=== PATIENT | female | born 1975 | race Two or more races ===

== ENCOUNTER → 2017-10-11 | Outpatient (REF) | payer OTHER ==
[2017-10-12 12:42] LABS: INFLUENZA A AMPLIFICATION NEGATIVE (NEGATIVE); INFLUENZA B AMPLIFICATION NEGATIVE (NEGATIVE)
== END ==
LOC: M SFHCLERA 21:41
DX: J11.1 Influenza due to unidentified influenza virus with other respiratory manifestations (principal)
CPT/HCPCS: 87502

== ENCOUNTER 2017-11-23 17:29 | Emergency (ER) | payer OTHER ==
[2017-11-23] MEDS: ONDANSETRON 4MG/2ML VIAL (J2405) IV (19:57)
[2017-11-23] MEDS: NS 1,000 ML IV (19:57)
[2017-11-23] MEDS: MORPHINE 2 MG/ML 1ML SYRINGE (J2270) IV ×3 (19:58→22:25)
[2017-11-23 20:14] LABS: BASO # 0.1 10^3/uL (0.0-0.2); BASO % 0.8 % (0.0-1.0); EOS # 0.3 10^3/uL (0.0-0.50); EOS % 3.2 % (0.0-3.0); HEMATOCRIT 40.3 % (36.0-47.0); HEMOGLOBIN 13.5 g/dl (12.0-16.0); IMMATURE GRANULOCYTE % 0.2 % (0-3.0); LYMPH # 2.4 10^3/uL (1.5-4.5); LYMPH % 26.4 % (24.0-44.0); MEAN CORPUSCULAR HEMOGLOBIN 32.1 pg (27.0-33.0); MEAN CORPUSCULAR HGB CONC 33.5 g/dl (32.0-36.5); MEAN CORPUSCULAR VOLUME 95.7 fl (80.0-96.0); MONO # 0.6 10^3/uL (0.0-0.8); MONO % 6.3 % (0.0-5.0); NEUTROPHILS # 5.8 10^3/uL (1.8-7.7); NEUTROPHILS % 63.1 % (36.0-66.0); PLATELET COUNT, AUTOMATED 177 10^3/uL (150-450); RED BLOOD COUNT 4.21 10^6/uL (4.00-5.40); WHITE BLOOD COUNT 9.2 10^3/uL (4.0-10.0)
[2017-11-23 20:23] LABS: KETONE, URINE AUTO RFX NEGATIVE (NEGATIVE); LEUKOCYTE ESTERASE UR AUTO RFX NEGATIVE (NEGATIVE); MUCUS, URINE RFX SMALL (NEGATIVE); NITRITE, URINE AUTO RFX NEGATIVE (NEGATIVE); RBC, URINE AUTO RFX 1 /HPF (0-3); SQUAM EPITHELIAL CELL UR AURFX 0 /HPF (0-6); WBC, URINE AUTO RFX 0 /HPF (0-3)
[2017-11-23 20:32] LABS: CONTROL LINE HCG INT CTR LINE PRESENT; HCG, SERUM QUALITATIVE NEGATIVE (NEGATIVE)
[2017-11-23 20:38] LABS: ALBUMIN 3.6 GM/DL (3.2-5.2); ALBUMIN/GLOBULIN RATIO 1.06 (1.00-1.93); ALKALINE PHOSPHATASE 53 U/L (45-117); ALT/SGPT 16 U/L (12-78); ANION GAP 8 MEQ/L (8-16); AST/SGOT 12 U/L (7-37); BILIRUBIN,DIRECT < 0.1 MG/DL (0.0-0.2); BILIRUBIN,TOTAL 0.2 MG/DL (0.2-1.0); BLOOD UREA NITROGEN 11 MG/DL (7-18); CALCIUM LEVEL 8.3 MG/DL (8.5-10.1); CARBON DIOXIDE LEVEL 26 MEQ/L (21-32); CHLORIDE LEVEL 107 MEQ/L (98-107); CREATININE FOR GFR 0.93 MG/DL (0.55-1.30); GLOMERULAR FILTRATION RATE > 60.0 (>58); GLUCOSE, FASTING 80 MG/DL (70-100); LIPASE 131 U/L (73-393); POTASSIUM SERUM 3.6 MEQ/L (3.5-5.1); SODIUM LEVEL 141 MEQ/L (136-145)
[2017-11-23 21:50] LABS: CONTROL LINE UCG INT CTR LINE PRESENT; URINE PREG TEST NEGATIVE (NEGATIVE)
[2017-11-23] MEDS ORDERED: ISOVUE-370 76% 100ML VIAL (Q9967) As Ordered (22:54)
[2017-11-24] MEDS: NORCO 5/325MG TABLET (BULK FOR ED) PO (00:53)
== END 2017-11-24 01:05 | disposition home or self-care (01) ==
LOC: M ED 11-24 01:05
DX: N83.202 Unspecified ovarian cyst, left side (principal); R11.10 Vomiting, unspecified; R19.7 Diarrhea, unspecified; I10 Essential (primary) hypertension; F41.9 Anxiety disorder, unspecified; K44.9 Diaphragmatic hernia without obstruction or gangrene; K21.9 Gastro-esophageal reflux disease without esophagitis; F17.210 Nicotine dependence, cigarettes, uncomplicated; Z88.0 Allergy status to penicillin; Z79.899 Other long term (current) drug therapy
CPT/HCPCS: J2405

== ENCOUNTER → 2017-11-24 | Outpatient (REF) | payer OTHER ==
[2017-11-24 11:26] LABS: BASO # 0.1 10^3/uL (0.0-0.2); BASO % 0.6 % (0.0-1.0); EOS # 0.2 10^3/uL (0.0-0.50); EOS % 2.9 % (0.0-3.0); HEMOGLOBIN 12.9 g/dl (12.0-16.0); IMMATURE GRANULOCYTE % 0.3 % (0-3.0); LYMPH # 1.9 10^3/uL (1.5-4.5); MEAN CORPUSCULAR HEMOGLOBIN 33.2 pg (27.0-33.0); MEAN CORPUSCULAR HGB CONC 33.9 g/dl (32.0-36.5); MEAN CORPUSCULAR VOLUME 97.7 fl (80.0-96.0); MONO # 0.5 10^3/uL (0.0-0.8); MONO % 5.9 % (0.0-5.0); NEUTROPHILS # 5.2 10^3/uL (1.8-7.7); NEUTROPHILS % 66.3 % (36.0-66.0); PLATELET COUNT, AUTOMATED 146 10^3/uL (150-450); RED BLOOD COUNT 3.89 10^6/uL (4.00-5.40); RED CELL DISTRIBUTION WIDTH 11.9 % (11.5-14.5); WHITE BLOOD COUNT 7.8 10^3/uL (4.0-10.0)
[2017-11-24 11:49] LABS: ESTIMATED AVERAGE GLUCOSE 103 MG/DL (60-110); HEMOGLOBIN A1c 5.2 %
[2017-11-24 11:50] LABS: ALBUMIN 3.5 GM/DL (3.2-5.2); ALBUMIN/GLOBULIN RATIO 1.25 (1.00-1.93); ALKALINE PHOSPHATASE 49 U/L (45-117); ALT/SGPT 17 U/L (12-78); ANION GAP 8 MEQ/L (8-16); AST/SGOT 9 U/L (7-37); BILIRUBIN,TOTAL 0.7 MG/DL (0.2-1.0); BLOOD UREA NITROGEN 8 MG/DL (7-18); CALCIUM LEVEL 7.9 MG/DL (8.5-10.1); CARBON DIOXIDE LEVEL 26 MEQ/L (21-32); CHLORIDE LEVEL 108 MEQ/L (98-107); CHOLESTEROL LEVEL 130 MG/DL (<200); CHOLESTEROL RISK RATIO 2.363 (<5); CREATININE FOR GFR 0.76 MG/DL (0.55-1.30); FREE T4 0.92 NG/DL (0.76-1.46); GLOMERULAR FILTRATION RATE > 60.0 (>58); GLUCOSE, FASTING 92 MG/DL (70-100); HDL CHOLESTEROL 55 MG/DL (>40); LDL CHOLESTEROL 55.8 MG/DL (<100); MAGNESIUM LEVEL 1.9 MG/DL (1.8-2.4); NON-HDL-C 75 MG/DL; SODIUM LEVEL 142 MEQ/L (136-145); TOTAL PROTEIN 6.3 GM/DL (6.4-8.2); TRIGLYCERIDES LEVEL 96 MG/DL (<150)
[2017-11-24 12:21] LABS: MALB URINE SIEMENS 7.3 MG/L; MAU/CREAT RATIO 5.6 MCG/MG (0.0-30.0)
== END ==
LOC: M SFHCPLAZ 09:27
DX: K21.9 Gastro-esophageal reflux disease without esophagitis (principal); R00.2 Palpitations; R73.01 Impaired fasting glucose; Z13.220 Encounter for screening for lipoid disorders; I10 Essential (primary) hypertension
CPT/HCPCS: 84443

== ENCOUNTER → 2017-11-25 | Outpatient (CLI) | payer OTHER | LOC: M RAD 11:00 | DX: R10.11 Right upper quadrant pain (principal) | CPT/HCPCS: 76705 ==

== ENCOUNTER → 2017-12-01 | Outpatient (CLI) | payer OTHER | LOC: M RAD 07:20 | DX: R10.11 Right upper quadrant pain (principal) | CPT/HCPCS: J2805 ==

== ENCOUNTER 2017-12-31 13:42 | Day surgery (SDC) | payer OTHER ==
[2017-12-31] MEDS: NS 1,000 ML IV (13:45)
[2017-12-31] MEDS ORDERED: fentaNYL 100 MCG/2 ML INJECTION (J3010) As Ordered (14:55)
[2017-12-31] MEDS ORDERED: ONDANSETRON 4MG/2ML VIAL (J2405) As Ordered (15:32)
== END 2017-12-31 16:26 | disposition home or self-care (01) ==
LOC: M OPP 13:42
DX: K58.1 Irritable bowel syndrome with constipation (principal); K58.2 Mixed irritable bowel syndrome; R10.9 Unspecified abdominal pain; D12.5 Benign neoplasm of sigmoid colon; K64.8 Other hemorrhoids; K30 Functional dyspepsia; R11.0 Nausea; K29.70 Gastritis, unspecified, without bleeding; I10 Essential (primary) hypertension; K44.9 Diaphragmatic hernia without obstruction or gangrene; K21.9 Gastro-esophageal reflux disease without esophagitis; F41.9 Anxiety disorder, unspecified; F32.9 Major depressive disorder, single episode, unspecified; F17.210 Nicotine dependence, cigarettes, uncomplicated; Z88.5 Allergy status to narcotic agent; Z91.048 Other nonmedicinal substance allergy status; Z88.0 Allergy status to penicillin; Z79.899 Other long term (current) drug therapy; Z83.71 Family history of colonic polyps
CPT/HCPCS: 45385

== ENCOUNTER → 2018-02-08 | Outpatient (REF) | payer OTHER | LOC: M SFHCLERA 19:43 | DX: J02.9 Acute pharyngitis, unspecified (principal) ==

== ENCOUNTER 2018-03-22 17:30 | Emergency (ER) | payer OTHER ==
[2018-03-22] MEDS: NORCO, ANEXSIA 5/325MG TABLET (HYDROcodone/ACETAMINOPHEN) PO (18:04)
[2018-03-22] MEDS: CLINDAMYCIN 150 MG CAP PO (18:05)
[2018-03-22] MEDS ORDERED: ONDANSETRON 4 MG ORAL DISINTEGRATING TAB (Q0162 PER 1MG) As Ordered (18:07)
[2018-03-22] MEDS: ONDANSETRON 4 MG ORAL DISINTEGRATING TAB (Q0162 PER 1MG) PO (18:09)
== END 2018-03-22 18:15 | disposition home or self-care (01) ==
LOC: M ED 17:30
DX: N61.1 Abscess of the breast and nipple (principal); I10 Essential (primary) hypertension; F32.9 Major depressive disorder, single episode, unspecified; F41.9 Anxiety disorder, unspecified; K58.9 Irritable bowel syndrome, unspecified; Z72.0 Tobacco use; Z79.899 Other long term (current) drug therapy; Z88.0 Allergy status to penicillin; Z91.89 Other specified personal risk factors, not elsewhere classified
CPT/HCPCS: Q0162

== ENCOUNTER → 2018-03-24 | Outpatient (CLI) | payer OTHER | LOC: M RAD 16:07 | DX: N60.01 Solitary cyst of right breast (principal); N61.1 Abscess of the breast and nipple | CPT/HCPCS: 76642 ==

== ENCOUNTER → 2018-03-31 | Outpatient (CLI) | payer OTHER | LOC: M RAD 15:58 | DX: N63.41 Unspecified lump in right breast, subareolar (principal) | CPT/HCPCS: 77066 ==

== ENCOUNTER 2018-04-02 09:29 | Emergency (ER) | payer OTHER ==
[2018-04-02 10:13] LABS: BASO % 0.5 % (0.0-1.0); EOS # 0.2 10^3/uL (0.0-0.50); HEMATOCRIT 38.7 % (36.0-47.0); IMMATURE GRANULOCYTE % 0.4 % (0-3.0); LYMPH # 1.7 10^3/uL (1.5-4.5); LYMPH % 29.9 % (24.0-44.0); MEAN CORPUSCULAR HGB CONC 33.6 g/dl (32.0-36.5); MEAN CORPUSCULAR VOLUME 98.2 fl (80.0-96.0); MONO # 0.4 10^3/uL (0.0-0.8); MONO % 6.2 % (0.0-5.0); NEUTROPHILS # 3.4 10^3/uL (1.8-7.7); PLATELET COUNT, AUTOMATED 196 10^3/uL (150-450); RED BLOOD COUNT 3.94 10^6/uL (4.00-5.40); RED CELL DISTRIBUTION WIDTH 12.1 % (11.5-14.5); WHITE BLOOD COUNT 5.7 10^3/uL (4.0-10.0)
[2018-04-02 10:19] LABS: D-DIMER QUANT 427.4 ng/ml (<500)
[2018-04-02 10:24] LABS: ANION GAP 7 MEQ/L (8-16); BLOOD UREA NITROGEN 7 MG/DL (7-18); CALCIUM LEVEL 8.1 MG/DL (8.5-10.1); CARBON DIOXIDE LEVEL 26 MEQ/L (21-32); CHLORIDE LEVEL 108 MEQ/L (98-107); CPK CREATINE PHOSPHOKINASE 71 U/L (26-192); CREATININE FOR GFR 0.91 MG/DL (0.55-1.30); FREE T4 0.89 NG/DL (0.76-1.46); GLOMERULAR FILTRATION RATE > 60.0 (>58); GLUCOSE, FASTING 109 MG/DL (70-100); POTASSIUM SERUM 3.5 MEQ/L (3.5-5.1); SODIUM LEVEL 141 MEQ/L (136-145); TROPONIN I < 0.02 NG/ML (< 0.10)
[2018-04-02 10:30] LABS: CK-MB VALUE MASS < 1.0 NG/ML (<3.6); THYROID STIMULATING HORMONE 0.908 uIU/ML (0.358-3.740)
[2018-04-02] MEDS: ALPRAZolam 0.5 MG TAB PO (10:43)
[2018-04-02 11:00] LABS: CONTROL LINE HCG INT CTR LINE PRESENT; HCG, SERUM QUALITATIVE NEGATIVE (NEGATIVE)
[2018-04-02 12:39] LABS: CK-MB VALUE MASS < 1.0 NG/ML (<3.6); CPK CREATINE PHOSPHOKINASE 88 U/L (26-192); MB/CK RELATIVE INDEX 1.13 (< OR =4); TROPONIN I < 0.02 NG/ML (< 0.10)
== END 2018-04-02 13:08 | disposition home or self-care (01) ==
LOC: M ED 09:29
DX: F41.0 Panic disorder [episodic paroxysmal anxiety] (principal); I10 Essential (primary) hypertension; Z79.899 Other long term (current) drug therapy; Z88.0 Allergy status to penicillin; Z91.048 Other nonmedicinal substance allergy status; F17.210 Nicotine dependence, cigarettes, uncomplicated
CPT/HCPCS: 71045

== ENCOUNTER 2018-04-05 08:48 | Emergency (ER) | payer OTHER | END 2018-04-05 10:22 | disposition home or self-care (01) | LOC: M ED 08:48 | DX: S91.332A Puncture wound without foreign body, left foot, initial encounter (principal); X58.XXXA Exposure to other specified factors, initial encounter; Y92.098 Other place in other non-institutional residence as the place of occurrence of the external cause; I10 Essential (primary) hypertension; K58.9 Irritable bowel syndrome, unspecified; F17.210 Nicotine dependence, cigarettes, uncomplicated; Z88.0 Allergy status to penicillin; Z91.048 Other nonmedicinal substance allergy status; Z79.899 Other long term (current) drug therapy | CPT/HCPCS: 73620 ==

== ENCOUNTER → 2018-06-09 | Outpatient (CLI) | payer OTHER ==
[2018-06-09 14:52] LABS: BASO # 0.1 10^3/uL (0.0-0.2); BASO % 0.6 % (0.0-1.0); EOS # 0.3 10^3/uL (0.0-0.50); EOS % 3.2 % (0.0-3.0); IMMATURE GRANULOCYTE % 0.2 % (0-3.0); MEAN CORPUSCULAR HEMOGLOBIN 32.5 pg (27.0-33.0); MEAN CORPUSCULAR HGB CONC 33.3 g/dl (32.0-36.5); MEAN CORPUSCULAR VOLUME 97.4 fl (80.0-96.0); MONO # 0.4 10^3/uL (0.0-0.8); MONO % 4.9 % (0.0-5.0); NEUTROPHILS # 5.6 10^3/uL (1.8-7.7); NEUTROPHILS % 67.1 % (36.0-66.0); PLATELET COUNT, AUTOMATED 207 10^3/uL (150-450); RED BLOOD COUNT 4.31 10^6/uL (4.00-5.40); RED CELL DISTRIBUTION WIDTH 11.6 % (11.5-14.5); WHITE BLOOD COUNT 8.4 10^3/uL (4.0-10.0)
[2018-06-09 15:12] LABS: ALBUMIN 3.8 GM/DL (3.2-5.2); ALBUMIN/GLOBULIN RATIO 1.15 (1.00-1.93); ALKALINE PHOSPHATASE 65 U/L (45-117); ALT/SGPT 20 U/L (12-78); ANION GAP 6 MEQ/L (8-16); AST/SGOT 16 U/L (7-37); BILIRUBIN,TOTAL 0.4 MG/DL (0.2-1.0); BLOOD UREA NITROGEN 6 MG/DL (7-18); CALCIUM LEVEL 8.4 MG/DL (8.5-10.1); CARBON DIOXIDE LEVEL 28 MEQ/L (21-32); CHLORIDE LEVEL 108 MEQ/L (98-107); GLOMERULAR FILTRATION RATE > 60.0 (>58); GLUCOSE, FASTING 89 MG/DL (70-100); POTASSIUM SERUM 4.2 MEQ/L (3.5-5.1); SODIUM LEVEL 142 MEQ/L (136-145); TOTAL PROTEIN 7.1 GM/DL (6.4-8.2)
[2018-06-09 15:20] LABS: FOLATE 11.3 NG/ML
[2018-06-11 00:06] LABS: FREE KAPPA LIGHT CHAINS SERUM 12.4 mg/L (3.3-19.4); FREE LAMBDA LIGHT CHAINS SERUM 14.3 mg/L (5.7-26.3); KAPPA/LAMBDA RATIO SERUM 0.87 (0.26-1.65)
[2018-06-14 13:40] LABS: ALPHA-1-GLOBULIN % 4.3 % (2.9-4.9); ALPHA-1-GLOBULINS 0.31 GM/DL (0.17-0.41); ALPHA-2-GLOBULINS 0.66 GM/DL (0.42-0.99); ALPHA-2-GLOBULINS % 9.3 % (7.1-11.8); BETA-1-GLOBULINS 0.45 GM/DL (0.28-0.60); BETA-1-GLOBULINS % 6.4 % (4.7-7.2); BETA-2-GLOBULINS 0.32 GM/DL (0.19-0.55); BETA-2-GLOBULINS % 4.5 % (3.2-6.5); GAMMA GLOBULIN % 13.5 % (11.1-18.8); GAMMA GLOBULINS 0.96 GM/DL (0.65-1.58)
== END ==
LOC: M LAB 13:13
DX: D53.9 Nutritional anemia, unspecified (principal)
CPT/HCPCS: 82746

== ENCOUNTER → 2018-06-16 | Outpatient (CLI) | payer OTHER | LOC: M LAB 12:21 | DX: M54.2 Cervicalgia (principal) | CPT/HCPCS: 72052 ==

== ENCOUNTER 2018-06-24 20:24 | Emergency (ER) | payer OTHER ==
[2018-06-24] MEDS: clonazePAM 1 MG TAB PO (21:56)
== END 2018-06-24 22:35 | disposition home or self-care (01) ==
LOC: M ED 20:24
DX: F41.1 Generalized anxiety disorder (principal); F17.210 Nicotine dependence, cigarettes, uncomplicated; Z88.0 Allergy status to penicillin; Z91.048 Other nonmedicinal substance allergy status; Z79.899 Other long term (current) drug therapy
CPT/HCPCS: 99283

== ENCOUNTER → 2018-07-04 | Outpatient (REF) | payer OTHER ==
[2018-07-07 00:07] LABS: AMPHETAMINE SCREEN, URINE Negative ng/mL (Cutoff=1000); BARBITURATES SCREEN, URINE Negative ng/mL (Cutoff=200); BENZODIAZEPINES, URINE SCREEN Negative ng/mL (Cutoff=200); CANNABINOID SCREEN, URINE Negative ng/mL (Cutoff=20); COCAINE SCREEN, URINE Negative ng/mL (Cutoff=300); CREATININE, URINE 10.6 mg/dL (20.0-300.0); FENTANYL URINE SCREEN Negative pg/mL (Cutoff=2000); METHADONE, URINE SCREEN Negative ng/mL (Cutoff=300); OPIATE SCREEN, URINE Negative ng/mL (Cutoff=300); OXYCODONE, SCREEN, URINE Negative ng/mL (Cutoff=100); PCP SCREEN, URINE Negative ng/mL (Cutoff=25); pH, URINE 6.6 (4.5-8.9)
== END ==
LOC: M SFHCPLAZ 10:25
DX: F41.9 Anxiety disorder, unspecified (principal)

== ENCOUNTER → 2018-07-11 | Outpatient (REF) | payer OTHER ==
[2018-07-14 14:50] LABS: AMPHETAMINE SCREEN, URINE Negative ng/mL (Cutoff=1000); BARBITURATES SCREEN, URINE Negative ng/mL (Cutoff=200); BENZODIAZEPINES, URINE SCREEN Negative ng/mL (Cutoff=200); CANNABINOID SCREEN, URINE Negative ng/mL (Cutoff=20); COCAINE SCREEN, URINE Negative ng/mL (Cutoff=300); FENTANYL URINE SCREEN Negative pg/mL (Cutoff=2000); METHADONE, URINE SCREEN Negative ng/mL (Cutoff=300); OPIATE SCREEN, URINE Negative ng/mL (Cutoff=300); OXYCODONE, SCREEN, URINE Negative ng/mL (Cutoff=100); PCP SCREEN, URINE Negative ng/mL (Cutoff=25); pH, URINE 6.7 (4.5-8.9)
== END ==
LOC: M SFHCPLAZ 12:54
DX: F41.9 Anxiety disorder, unspecified (principal)

== ENCOUNTER 2018-09-13 14:50 | Emergency (ER) | payer OTHER ==
[~2018-09-13] VITALS: Ht 157.5 cm; Wt 62.7 kg
[~2018-09-13 14:50] MED LIST: ALPR0.25 PO; CLEO300C2 PO; CLON1TAB8 PO; DICY10CA13; KLON1TAB PO; LANS15CA PO; LISI-542 PO; METO50TA7 PO; NEXI20CA PO; NORCOTAB PO; ONDA4TAB6 PO; OXYC1TAB23 PO; PREV1CAP PO; TIZA-208 PO; ZOFR4TAB14 PO
[2018-09-13] MEDS ORDERED: ESOM1CAP5 (14:59)
--- NOTE | 2018-09-13 15:34 | REP ---
This chest two views HISTORY: Chest pain Comparison: 04/02/2018 The lungs are clear. The heart is normal in size. The pulmonary vasculature is normal in appearance. The bony structure is intact. IMPRESSION: No acute disease. Electronically Signed by Obi Merrill MD 09/13/2018 03:26 P
[2018-09-13] MEDS ORDERED: PERCOCET 5MG/325MG TAB PO ONE (16:00)
[2018-09-13] MEDS ORDERED: ONDANSETRON 4 MG ORAL DISINTEGRATING TAB (Q0162 PER 1MG) PO ONE (16:00)
[2018-09-13 16:16] LABS: BASO # 0.1 10^3/uL (0.0-0.2); BASO % 0.7 % (0.0-1.0); EOS # 0.2 10^3/uL (0.0-0.50); EOS % 2.5 % (0.0-3.0); HEMATOCRIT 40.8 % (36.0-47.0); HEMOGLOBIN 13.5 g/dl (12.0-15.5); LYMPH % 23.7 % (24.0-44.0); MEAN CORPUSCULAR HGB CONC 33.1 g/dl (32.0-36.5); MEAN CORPUSCULAR VOLUME 96.7 fl (80.0-96.0); MONO # 0.4 10^3/uL (0.0-0.8); MONO % 5.3 % (0.0-5.0); NEUTROPHILS # 5.6 10^3/uL (1.8-7.7); NEUTROPHILS % 67.4 % (36.0-66.0); PLATELET COUNT, AUTOMATED 194 10^3/uL (150-450); RED BLOOD COUNT 4.22 10^6/uL (4.00-5.40); WHITE BLOOD COUNT 8.3 10^3/uL (4.0-10.0)
[2018-09-13 16:30] LABS: ALBUMIN 3.8 GM/DL (3.2-5.2); ALT/SGPT 19 U/L (12-78); AMYLASE 36 U/L (25-115); BILIRUBIN,DIRECT 0.1 MG/DL (0.0-0.2); BILIRUBIN,TOTAL 0.3 MG/DL (0.2-1.0); BLOOD UREA NITROGEN 11 MG/DL (7-18); CALCIUM LEVEL 8.6 MG/DL (8.5-10.1); CARBON DIOXIDE LEVEL 27 MEQ/L (21-32); CHLORIDE LEVEL 108 MEQ/L (98-107); CREATININE FOR GFR 0.77 MG/DL (0.55-1.30); GLOMERULAR FILTRATION RATE > 60.0 (>58); GLUCOSE, FASTING 91 MG/DL (70-100); LIPASE 118 U/L (73-393); POTASSIUM SERUM 4.5 MEQ/L (3.5-5.1); SODIUM LEVEL 140 MEQ/L (136-145); TOTAL PROTEIN 6.9 GM/DL (6.4-8.2)
[2018-09-13 16:47] VITALS: BP 139/70
[2018-09-13] MEDS ORDERED: PERC5TAB12 PO (16:49)
[2018-09-13] MEDS ORDERED: ZOFR4TAB14 PO (16:57)
== END 2018-09-13 16:59 | disposition home or self-care (01) ==
LOC: M ED 14:50
DX: S20.212A Contusion of left front wall of thorax, initial encounter (principal); W19.XXXA Unspecified fall, initial encounter; Y92.098 Other place in other non-institutional residence as the place of occurrence of the external cause; I10 Essential (primary) hypertension; F41.9 Anxiety disorder, unspecified; F17.210 Nicotine dependence, cigarettes, uncomplicated; Z88.0 Allergy status to penicillin; Z91.048 Other nonmedicinal substance allergy status; Z79.899 Other long term (current) drug therapy
CPT/HCPCS: 36415; 71046; 80048; 80076; 81001; 81025; 82150; 83690; 85025; 99284; Q0162

== ENCOUNTER 2018-10-12 12:09 | Emergency (ER) | payer OTHER ==
[~2018-10-12] VITALS: Ht 157.5 cm; Wt 63.6 kg
[~2018-10-12 12:09] MED LIST changes: +ESOM1CAP5; +PERC5TAB12 PO
[2018-10-12 12:10] VITALS: BP 162/93
[2018-10-12] MEDS ORDERED: DICY20TA (12:16)
[2018-10-12] MEDS ORDERED: PROZ20CA11 PO (12:16)
[2018-10-12] MEDS ORDERED: DOCU100C16 (12:16)
[2018-10-12] MEDS ORDERED: ACET-683 (12:16)
[2018-10-12] MEDS ORDERED: CETI10TA (12:16)
[2018-10-12] MEDS ORDERED: FLUTISP (12:16)
[2018-10-12] MEDS ORDERED: ADACEL/BOOSTRIX VACCINE (DIPHTH/PERTUSS/ACELL/TETANUS)0.5ML SYR (90715) IM ONE (12:30)
[2018-10-12] MEDS ORDERED: NAPROXEN 250 MG TAB PO ONE (12:30)
[2018-10-12] MEDS ORDERED: NAPR-50 PO (12:30)
[2018-10-12] MEDS ORDERED: BACITRACIN OINT 30GM TOP ONE (12:30)
[2018-10-12] MEDS ORDERED: KEFL500C17 PO (12:30)
== END 2018-10-12 12:48 | disposition home or self-care (01) ==
LOC: M ED 12:09
DX: S31.825A Open bite of left buttock, initial encounter (principal); W54.0XXA Bitten by dog, initial encounter; Y92.410 Unspecified street and highway as the place of occurrence of the external cause

== ENCOUNTER 2018-10-14 14:56 | Emergency (ER) | payer OTHER ==
[~2018-10-14] VITALS: Ht 157.5 cm; Wt 66.3 kg
[~2018-10-14 14:56] MED LIST changes: +ACET-683; +CETI10TA; +DICY20TA; +DOCU100C16; +FLUTISP; +KEFL500C17 PO; +NAPR-50 PO; +PROZ20CA11 PO
[2018-10-14] MEDS ORDERED: RABIES VACCINE HUMAN 2.5 INTERNATIONAL UNITS/ML VIAL (90675) IM ONE (15:30)
[2018-10-14] MEDS ORDERED: PERCOCET 5MG/325MG TAB PO ONE (15:30)
[2018-10-14] MEDS ORDERED: TETANUS IMMUNE GLOBULIN (HUMAN) 250 UNITS/ML SYRINGE (J1670)(90389) IM ONE (15:30)
[2018-10-14] MEDS ORDERED: RABIES IMMUNE GLOBULIN 1500 INTERNATIONAL UNIT/5ML VIAL (90375) IM ONE (15:45)
[2018-10-14 16:43] VITALS: BP 129/81
== END 2018-10-14 17:33 | disposition home or self-care (01) ==
LOC: M ED 14:56
DX: Z20.3 Contact with and (suspected) exposure to rabies (principal); S31.825A Open bite of left buttock, initial encounter; W54.0XXA Bitten by dog, initial encounter; Y92.9 Unspecified place or not applicable; Y93.9 Activity, unspecified; Y99.9 Unspecified external cause status; Z72.0 Tobacco use; Z79.899 Other long term (current) drug therapy; Z88.0 Allergy status to penicillin; Z91.89 Other specified personal risk factors, not elsewhere classified

== ENCOUNTER 2018-11-26 14:34 | Emergency (ER) | payer OTHER ==
[~2018-11-26] VITALS: Ht 157.5 cm; Wt 70.3 kg
[2018-11-26] MEDS ORDERED: OLAN5TAB (14:47)
[2018-11-26 15:41] LABS: INFLUENZA A AMPLIFICATION NEGATIVE (NEGATIVE); INFLUENZA B AMPLIFICATION NEGATIVE (NEGATIVE)
[2018-11-26] MEDS ORDERED: TESS100C PO (16:13)
[2018-11-26] MEDS ORDERED: PRED20TA PO (16:13)
[2018-11-26 16:16] VITALS: BP 117/66
--- NOTE | 2018-11-27 07:41 | REP ---
CHEST, TWO VIEWS: There is no evidence of acute infiltrate. No pleural effusion is seen. The heart is normal in size. The mediastinal silhouette is unremarkable. The visualized osseous structures are intact. IMPRESSION: No acute pulmonary disease. Electronically Signed by Erwin Caballero MD 11/27/2018 10:24 A
== END 2018-11-26 16:18 | disposition home or self-care (01) ==
LOC: M ED 14:34
DX: J40 Bronchitis, not specified as acute or chronic (principal); Z79.899 Other long term (current) drug therapy; Z88.0 Allergy status to penicillin; Z91.048 Other nonmedicinal substance allergy status; F17.210 Nicotine dependence, cigarettes, uncomplicated

== ENCOUNTER → 2019-03-27 | Outpatient (REF) | payer OTHER ==
[~2019-03-27] MED LIST changes: +HYDR-3715 PO; -NAPR-50 PO; +NAPR-837 PO; -NORCOTAB PO; +OLAN5TAB; +PRED20TA PO; +TESS100C PO; -TIZA-208 PO; +TIZA4TAB4 PO
[2019-03-27 22:24] LABS: CHLAMYDIA DNA AMPLIFICATION NEGATIVE (NEGATIVE); GC DNA AMPLIFICATION NEGATIVE (NEGATIVE)
== END ==
LOC: M SFHCLERA 13:07
PROVIDERS: ATTEND Physician Assistant
DX: J02.9 Acute pharyngitis, unspecified (principal)

== ENCOUNTER → 2019-04-06 | Outpatient (CLI) | payer OTHER ==
--- NOTE | 2019-04-06 17:08 | REP ---
Clinical: Dorsalgia. Thoracic pain. Technique: AP, lateral, and swimmers views. Findings: Alignment and kyphosis is maintained. Vertebral bodies intact. No acute fracture / compression injury or subluxation. No degenerative changes. Paravertebral soft tissues are normal. Impression: Age-appropriate thoracic spine series. Electronically Signed by Chase Anguiano MD 04/06/2019 04:58 P
--- NOTE | 2019-04-06 17:09 | REP ---
Clinical: Neck pain . Technique: AP, lateral, flexion/extension, bilateral oblique, and open-mouth views. Findings: Alignment and lordosis is maintained. There is no evidence for acute fracture / compression injury or subluxation. No significant degenerative changes are appreciated by radiographic evaluation . Oblique views demonstrate patent neural foramen. Open mouth view demonstrates normal C1-C2 articulation and odontoid process. Impression: Essentially age-appropriate examination. Electronically Signed by Chase Anguiano MD 04/06/2019 05:00 P
--- NOTE | 2019-04-06 17:14 | REP ---
Clinical: Lower back pain. Dorsalgia. Technique: AP, lateral, bilateral oblique, and coned-down views. Findings: Alignment and lordosis is maintained. The vertebral bodies including transverse process and spinous processes are intact and normal. There is no evidence for acute fracture / compression injury or subluxation. No evidence for spondylolysis or spondylolisthesis. No significant degenerative change is noted. Impression: Normal lumbosacral spine radiograph series. Electronically Signed by Chase Anguiano MD 04/06/2019 05:05 P
== END ==
LOC: M RAD 15:55
PROVIDERS: ATTEND Family Medicine
DX: M54.9 Dorsalgia, unspecified (principal)

== ENCOUNTER 2019-06-03 18:05 | Emergency (ER) | payer OTHER ==
[~2019-06-03] VITALS: Ht 160 cm; Wt 74.1 kg
[2019-06-03] MEDS ORDERED: LAMO25TA4 (18:29)
[2019-06-03] MEDS ORDERED: CLON-412 (18:29)
[2019-06-03] MEDS ORDERED: KETO10TAB PO (19:19)
[2019-06-03] MEDS ORDERED: ROBA750T4 PO (19:19)
[2019-06-03] MEDS ORDERED: METHOCARBAMOL 750 MG TAB PO ONE (19:30)
[2019-06-03] MEDS ORDERED: KETOROLAC 60 MG/2 ML VIAL (J1885) IM ONE (19:30)
[2019-06-03 19:48] VITALS: BP 133/81
--- NOTE | 2019-06-04 09:01 | REP ---
CERVICAL SPINE COMPLETE: 06/03/2019. Comparison: 04/06/2019. Clinical history: Neck pain and right upper extremity pain. Findings: Eight views provided. Mild spurring and spondylosis at the C5-6 with slight disc space narrowing of the disc space heights and all vertebral body heights are intact. There is decreased range of motion with extension, adequate flexion and no instability. C1-2 relationship stable on all views. Prevertebral swelling is not present. The dens and lateral masses align normally on the open-mouth view. Foramina are adequate bilaterally. No torticollis. Impression: 1. Mild cervical spondylosis at C5-6 unchanged with slight disc space narrowing and anterior osteophytes. No compression deformity. Other disc spaces narrowed or prevertebral swelling. 2. Decreased range of motion with extension. Adequate flexion. No instability. 3. Foramina adequate. Electronically Signed by Sajan Banks MD 06/04/2019 01:06 P
== END 2019-06-03 19:58 | disposition home or self-care (01) ==
LOC: M ED 18:05
DX: M43.6 Torticollis (principal); M54.12 Radiculopathy, cervical region; I10 Essential (primary) hypertension; Z79.899 Other long term (current) drug therapy; Z88.0 Allergy status to penicillin
CPT/HCPCS: 72052; 96372; 99283; J1885

== ENCOUNTER → 2019-06-26 | Outpatient (CLI) | payer OTHER ==
[~2019-06-26] MED LIST changes: +CLON-412; +KETO10TAB PO; +LAMO25TA4; +ROBA750T4 PO
--- NOTE | 2019-06-26 10:21 | REP ---
MRI cervical spine: Indication: Cervical radiculopathy. Comparison: None. Technique: Multiplanar short and long TR sequences of the cervical spine were obtained. Findings: There is straightening of the cervical lordosis. Focal fatty marrow is noted within the posterior aspect of the C7 vertebral body. The visualized cord is normal. The vertebral flow voids are unremarkable. C2/C3 , C3/C4 and C4/C5: Unremarkable. C5/C6: There is a small left paracentral disc protrusion superimposed on a diffuse disc bulge without significant spinal canal narrowing. There is mild narrowing of the left neural foramen. The right neural foramen is patent. C6/C7 and C7/T1: Unremarkable. Impression: C5/C6 degenerative sequelae without significant spinal canal or neural foraminal narrowing. Electronically Signed by Adam Lipscomb DO 06/26/2019 10:12 A
--- NOTE | 2019-06-27 03:02 | REP ---
Clinical: Left hip pain. Technique: Neutral and frog lateral views of the left hip. Findings: Minimal joint space narrowing cannot be excluded. No further overt osteoarthritic degenerative changes are appreciated. No acute fracture dislocation. No obvious effusion. Impression: No significant abnormality by radiographic evaluation noted. Electronically Signed by Chase Anguiano MD 06/27/2019 02:54 A
== END ==
LOC: M RAD 07:06
PROVIDERS: ATTEND Internal Medicine
DX: M50.122 Cervical disc disorder at C5-C6 level with radiculopathy (principal); M25.552 Pain in left hip

== ENCOUNTER → 2019-09-19 | Outpatient (REF) | payer OTHER | LOC: M SFHCLERA 19:14 | PROVIDERS: ATTEND Nurse Practitioner Family | DX: R10.9 Unspecified abdominal pain (principal) ==

== ENCOUNTER → 2019-09-19 | Outpatient (CLI) | payer OTHER ==
--- NOTE | 2019-09-19 14:29 | REP ---
Left rib series: Four views including PA chest. History: Flank pain. Comparison chest x-ray: November 26, 2018. Findings: PA chest radiograph is normal. There is no evidence of pneumothorax or hydrothorax. Mediastinum is not widened. Heart size is normal. Multiple views of the left rib cage show no evidence of left rib fracture or bony destructive lesion. Impression: Negative left rib series. Electronically Signed by Luis Wasserman MD 09/19/2019 02:21 P
== END ==
LOC: M LRY 14:05
PROVIDERS: ATTEND Nurse Practitioner Family
DX: R10.9 Unspecified abdominal pain (principal)

== ENCOUNTER 2019-11-15 13:27 | Day surgery (SDC) | payer OTHER ==
[~2019-11-15] VITALS: Ht 160 cm; Wt 62.1 kg
[~2019-11-15 13:27] MED LIST changes: +ALL10TAB29 PO; -CLON-412; +CLON-412 PO; +NS 1,000 ML IV ONE; +ONDA-83 PO; +PROZ40CA PO
[2019-11-15] MEDS ORDERED: LIDOCAINE 2% INJ 100 MG/5 ML SDV (FOR ANES.) As Ordered ONE (15:13)
[2019-11-15] MEDS ORDERED: propofoL 200 MG/20 ML VIAL As Ordered ONE ×2 (15:13→15:35)
--- NOTE | 2019-11-15 15:40 | ROOR ---
Patient Name: Azalia Waddell Procedure Date: 11/15/2019 3:21 PM Date of : 1975 Age: 44 Room: [facility] Gender: Female Note Status: Finalized Procedure: Upper GI endoscopy Indications: Heartburn, Nausea with vomiting Providers: Carter LEW MD Referring MD: Jasmin FELIPE MD Requesting Provider: Medicines: Monitored Anesthesia Care Complications: No immediate complications. Procedure: Pre-Anesthesia Assessment: - The heart rate, respiratory rate, oxygen saturations, blood pressure, adequacy of pulmonary ventilation, and response to care were monitored throughout the procedure. The Endoscope was introduced through the mouth, and advanced to the third part of duodenum. The upper GI endoscopy was accomplished without difficulty. The patient tolerated the procedure well. Findings: The esophagus was normal. The stomach was normal. The examined duodenum was normal. Several biopsies were obtained in the entire esophagus, in the entire examined stomach and in the entire duodenum with cold forceps for histology. Impression: - Normal esophagus. - Normal stomach. - Normal examined duodenum. - Biopsies were obtained in the entire esophagus, in the entire examined stomach and in the entire examined duodenum to eval for eosinophilic gastroenteritis. Recommendation: - Continue present medications. - Eat smaller, more frequent meals throughout the day. - Low fat diet. - Liquid/soft foods are tolerated better than solid foods. - Low fiber/well cooked vegetables are tolerated better than high fiber/fibrous foods/raw vegetables. - Avoid medications that inhibit gastric/intestinal motility such as narcotic medications. - Telephone endoscopist for pathology results in 2 weeks. Carter Lew MD Carter LEW MD 11/15/2019 3:39:28 PM Electronically signed by Carter LEW MD Number of Addenda: 0 Note Initiated On: 11/15/2019 3:21 PM Estimated Blood Loss: Estimated blood loss: none.
[2019-11-15 15:55] VITALS: BP 139/81
== END 2019-11-15 16:10 | disposition home or self-care (01) ==
LOC: M OPP 13:27
PROVIDERS: ATTEND Internal Medicine Gastroenterology
DX: R11.2 Nausea with vomiting, unspecified (principal); R12 Heartburn; K21.9 Gastro-esophageal reflux disease without esophagitis; Z83.71 Family history of colonic polyps; Z83.79 Family history of other diseases of the digestive system; Z79.899 Other long term (current) drug therapy; Z88.0 Allergy status to penicillin

== ENCOUNTER 2020-11-06 09:05 | Emergency (ER) | payer OTHER ==
[~2020-11-06] VITALS: Ht 157.5 cm; Wt 47.7 kg
[~2020-11-06 09:05] MED LIST changes: -ALL10TAB29 PO; +CETI-24 PO; -DICY20TA; +DICY20TA3; -LISI-542 PO; +LISI-898 PO; -NS 1,000 ML IV ONE
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
[2020-11-06] MEDS ORDERED: KETOROLAC 30 MG/ML 1ML VIAL IV ONE (09:45)
[2020-11-06] MEDS ORDERED: LORazepam 1 MG TAB PO STA (09:47)
[2020-11-06] MEDS ORDERED: KETOROLAC 30 MG/ML 1ML VIAL IM ONE (09:50)
[2020-11-06] MEDS ORDERED: clonazePAM 1 MG TAB PO ONE (10:05)
[2020-11-06] MEDS ORDERED: LAMO25TA4 PO (10:28)
[2020-11-06] MEDS ORDERED: ARIP1TAB6 PO (10:28)
[2020-11-06] MEDS ORDERED: FLUO20CA22 PO (10:28)
[2020-11-06] MEDS ORDERED: DICY10CA13 PO (10:28)
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
[2020-11-06] MEDS ORDERED: CLON1TAB8 PO (11:36)
[2020-11-06 12:22] VITALS: BP 122/86
== END 2020-11-06 12:21 | disposition home or self-care (01) ==
LOC: EDBD 09:05 → M ED 09:05
DX: S20.229A Contusion of unspecified back wall of thorax, initial encounter (principal); S10.83XA Contusion of other specified part of neck, initial encounter; W22.8XXA Striking against or struck by other objects, initial encounter; Y92.018 Other place in single-family (private) house as the place of occurrence of the external cause; F15.23 Other stimulant dependence with withdrawal; I10 Essential (primary) hypertension; F33.9 Major depressive disorder, recurrent, unspecified; F41.9 Anxiety disorder, unspecified; Z79.899 Other long term (current) drug therapy; Z88.0 Allergy status to penicillin; F17.210 Nicotine dependence, cigarettes, uncomplicated
CPT/HCPCS: 70450; 72072; 72125; 96372; 99284; J1885

== ENCOUNTER 2020-11-21 09:23 | Emergency (ER) | payer OTHER ==
[~2020-11-21] VITALS: Ht 157.5 cm; Wt 51.0 kg
[~2020-11-21 09:23] MED LIST changes: +ARIP1TAB6 PO; +DICY10CA13 PO; +FLUO20CA22 PO; +LAMO25TA4 PO
[2020-11-21] MEDS: LORazepam 2 MG TAB PO STA ×2 (11:25→11:26)
[2020-11-21 11:59] VITALS: BP 131/88
== END 2020-11-21 12:22 | disposition home or self-care (01) ==
LOC: M ED 09:23
DX: F41.9 Anxiety disorder, unspecified (principal); F31.9 Bipolar disorder, unspecified; Z88.0 Allergy status to penicillin; F17.210 Nicotine dependence, cigarettes, uncomplicated; Z79.899 Other long term (current) drug therapy

== ENCOUNTER 2021-01-14 18:09 | Emergency (ER) | payer OTHER ==
[~2021-01-14] VITALS: Ht 157.5 cm; Wt 47.7 kg
[2021-01-14] MEDS ORDERED: diphenhydrAMINE 50MG/ML VIAL (J1200) IV ONE (19:30)
[2021-01-14] MEDS ORDERED: METOCLOPRAMIDE INJ 10MG/2ML VIAL (J2765 PER 1) IV ONE (19:30)
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
[2021-01-14 20:25] LABS: BASO % 0.5 % (0.0-1.0); EOS # 0.1 10^3/uL (0.0-0.5); EOS % 1.6 % (0.0-3.0); HEMATOCRIT 39.8 % (36.0-47.0); HEMOGLOBIN 13.5 g/dl (12.0-15.5); LYMPH # 1.8 10^3/uL (1.5-5.0); LYMPH % 27.7 % (24.0-44.0); MEAN CORPUSCULAR HEMOGLOBIN 31.5 pg (27.0-33.0); MEAN CORPUSCULAR HGB CONC 33.9 g/dl (32.0-36.5); MEAN CORPUSCULAR VOLUME 92.8 fl (80.0-96.0); MONO # 0.4 10^3/uL (0.0-0.8); MONO % 6.6 % (2.0-8.0); NEUTROPHILS % 63.4 % (36.0-66.0); PLATELET COUNT, AUTOMATED 225 10^3/uL (150-450); RED BLOOD COUNT 4.29 10^6/uL (4.00-5.40); WHITE BLOOD COUNT 6.4 10^3/uL (4.0-10.0)
[2021-01-14 21:04] LABS: HCG, SERUM QUALITATIVE NEGATIVE (NEGATIVE)
[2021-01-14 21:05] LABS: ACETAMINOPHEN LEVEL < 2.0 UG/ML (10.0-30.0); ALBUMIN 3.6 GM/DL (3.2-5.2); ALT/SGPT 27 U/L (12-78); BILIRUBIN,DIRECT 0.1 MG/DL (0.0-0.2); BILIRUBIN,TOTAL 0.4 MG/DL (0.2-1.0); BLOOD UREA NITROGEN 11 MG/DL (7-18); CARBON DIOXIDE LEVEL 28 MEQ/L (21-32); CHLORIDE LEVEL 105 MEQ/L (98-107); CREATININE FOR GFR 0.61 MG/DL (0.55-1.30); ETHYL ALCOHOL (ETHANOL) < 0.003 % (0.000-0.010); GLOMERULAR FILTRATION RATE > 60.0 (>58); GLUCOSE, FASTING 99 MG/DL (70-100); SALICYLATE LEVEL < 1.7 MG/DL (5.0-30.0); SODIUM LEVEL 139 MEQ/L (136-145); TOTAL PROTEIN 7.6 GM/DL (6.4-8.2)
[2021-01-14 21:55] LABS: AMPHETAMINES LEVEL URINE NEGATIVE (NEGATIVE); BARBITURATES URINE NEGATIVE (NEGATIVE); BENZODIAZEPINES URINE NEGATIVE (NEGATIVE); CANNABINOIDS URINE NEGATIVE (NEGATIVE); COCAINE METABOLITE URINE NEGATIVE (NEGATIVE); METHADONE URINE NEGATIVE (NEGATIVE); OPIATES URINE NEGATIVE (NEGATIVE); PHENCYCLIDINE URINE NEGATIVE (NEGATIVE)
[2021-01-14] MEDS ORDERED: NS 1,000 ML IV ONE (22:00)
[2021-01-15 00:01] VITALS: BP 132/75
== END 2021-01-15 00:23 | disposition home or self-care (01) ==
LOC: M ED 18:09
DX: G44.319 Acute post-traumatic headache, not intractable (principal); I51.89 Other ill-defined heart diseases; K58.9 Irritable bowel syndrome, unspecified; F17.200 Nicotine dependence, unspecified, uncomplicated; Z79.899 Other long term (current) drug therapy; Z88.0 Allergy status to penicillin
CPT/HCPCS: 70450; 80048; 80076; 80143; 80307; 82077; 84443; 84703; 85025; 96374; 96375; 99284; J1200; J2765

== ENCOUNTER 2021-06-12 15:06 | Emergency (ER) | payer MEDICAID, OTHER, SELFPAY ==
[~2021-06-12] VITALS: Ht 157.5 cm; Wt 55.7 kg
[2021-06-12 15:06] VITALS: BP 140/100
[~2021-06-12 15:06] MED LIST changes: +OLAN1TAB16; -OLAN5TAB
== END 2021-06-12 17:13 | disposition left against medical advice (07) ==
LOC: M ED 15:06
DX: Z53.21 Procedure and treatment not carried out due to patient leaving prior to being seen by health care provider (principal)

== ENCOUNTER 2021-07-09 03:12 | Emergency (ER) | payer MEDICAID ==
[~2021-07-09] VITALS: Ht 157.5 cm; Wt 59.1 kg
[2021-07-09] MEDS ORDERED: HYDR-3363 PO (06:12)
[2021-07-09] MEDS ORDERED: CEPH500C PO (06:12)
[2021-07-09 06:38] LABS: BASO % 0.6 % (0.0-1.0); EOS # 0.2 10^3/uL (0.0-0.5); EOS % 2.2 % (0.0-3.0); HEMATOCRIT 33.7 % (36.0-47.0); HEMOGLOBIN 10.9 g/dl (12.0-15.5); LYMPH # 1.9 10^3/uL (1.5-5.0); LYMPH % 27.9 % (24.0-44.0); MEAN CORPUSCULAR HEMOGLOBIN 31.1 pg (27.0-33.0); MEAN CORPUSCULAR HGB CONC 32.3 g/dl (32.0-36.5); MONO # 0.4 10^3/uL (0.0-0.8); NEUTROPHILS # 4.2 10^3/uL (1.5-8.5); NEUTROPHILS % 61.6 % (36.0-66.0); PLATELET COUNT, AUTOMATED 313 10^3/uL (150-450); RED BLOOD COUNT 3.51 10^6/uL (4.00-5.40); WHITE BLOOD COUNT 6.9 10^3/uL (4.0-10.0)
[2021-07-09 07:04] LABS: ALBUMIN 2.5 GM/DL (3.2-5.2); ALT/SGPT 26 U/L (12-78); BILIRUBIN,DIRECT < 0.1 MG/DL (0.0-0.2); BILIRUBIN,TOTAL 0.1 MG/DL (0.2-1.0); CK-MB VALUE MASS < 1.0 NG/ML (<3.6); CPK CREATINE PHOSPHOKINASE 39 U/L (26-192); LIPASE 118 U/L (73-393); MB/CK RELATIVE INDEX 2.56 (< OR =4); TOTAL PROTEIN 6.3 GM/DL (6.4-8.2); TROPONIN I < 0.02 NG/ML (< 0.10)
[2021-07-09 07:36] LABS: HCG, SERUM QUALITATIVE NEGATIVE (NEGATIVE)
[2021-07-09] MEDS ORDERED: ISOVUE-370 76% 100ML VIAL As Ordered ONE (08:05)
[2021-07-09 08:58] LABS: BLOOD UREA NITROGEN 9 MG/DL (7-18); CALCIUM LEVEL 8.2 MG/DL (8.5-10.1); CARBON DIOXIDE LEVEL 27 MEQ/L (21-32); CHLORIDE LEVEL 108 MEQ/L (98-107); CREATININE FOR GFR 0.59 MG/DL (0.55-1.30); GLOMERULAR FILTRATION RATE > 60.0 (>58); GLUCOSE, FASTING 100 MG/DL (70-100); POTASSIUM SERUM 4.1 MEQ/L (3.5-5.1); SODIUM LEVEL 140 MEQ/L (136-145)
[2021-07-09] MEDS ORDERED: NS 1,000 ML IV ONE (09:00)
[2021-07-09] MEDS ORDERED: KETOROLAC 30 MG/ML 1ML VIAL IV ONE (09:00)
--- NOTE | 2021-07-09 10:11 | REP ---
INDICATION: R lower abd cellulitis, firm. COMPARISON: 11/23/2017 TECHNIQUE: Bolus 100 mL Isovue 370 scanning through the abdomen pelvis with coronal and sagittal reconstructions. FINDINGS: CT abdomen: Lung bases show some minor dependent atelectatic changes posteriorly in the lower lung zone left greater than right. No effusion, infiltrate, nodule or mass. Heart is not enlarged there is no pericardial thickening or effusion. I see no hiatal hernia. Liver is mildly enlarged with vertical diameter 18.8 cm of the right lobe in the mid clavicular line. No contour abnormality. No focal hepatic lesion, intrahepatic biliary dilatation or adjacent ascites. There is no splenomegaly or focal splenic lesion. Gallbladder shows no calcified stone or mass. Pancreas is unremarkable adrenal glands were normal. Abdominal portion of the colon shows stool and gas without acute inflammatory process. Small bowel loops were unremarkable kidneys show function in a symmetric fashion with enhancement but no mass, cyst, stone or hydronephrosis. The aorta is without aneurysm or dissection and has a few scattered calcifications. No periaortic, other retroperitoneal or mesenteric pathologic sized lymphadenopathy. Lung window review of all CT slices shows no perforation or free air in the abdomen or pelvis. No generalized ascites. The bony lumbar lower thoracic spine, posterior elements and portions of lower ribs included were all unremarkable. CT pelvis: The sacrum, SI joints, pelvis and hips were unremarkable. There is a zone of inflammatory change and edema of the subcutaneous fat and adjacent dermal layer in the right lower quadrant anteriorly. Some adjacent lymph nodes in the inguinal region and groin as reactive adenopathy. I do not see a drainable abscess collection as all this is the ill-defined. The area extends down towards the pubic bone in the midline. There are no similar findings on the left. Within the deep pelvis the small bowel loops are fluid-filled but not abnormally dilated. The distal left colon, sigmoid and rectum are grossly intact. Uterus is anteverted, tilted slightly towards the right but not abnormally enlarged. There is a 4.5 cm cystic lesion abutting the fundus of the uterus towards the right that I suspect has origin from the left ovary which appears to abut the fundus.. I suspect the right ovary is parametrial and more posterior to the uterus. This cystic lesion is predominantly central and towards the right, however arising from that presumed left ovarian tissue. The relative positions of the ovaries are best demonstrated on axial image 108. There are no inflammatory changes about the cecum. Cystic lesion does abut the cecal tip. Abdominal wall musculatures unremarkable a deep to the area of cellulitis. IMPRESSION: Subcutaneous edema and some dermal thickening in the right lower quadrant ventrally at and above the inguinal region suggesting cellulitis. There is no definite abscess or drainable collection. There is some reactive adenopathy in the inguinal region and adjacent to the inflammatory change in the subcutaneous fat. 4.5 cm cystic lesion appearing to arise from ovarian tissue on the left but central and towards the right of midline in its location. It extends laterally to abut the cecal tip. Left ovary appears anterior towards the fundus and the right ovary is posterior parametrial. No pelvic free fluid or uterine abnormality. Upper abdomen, bowel loops and bony structures all unremarkable. No ascites, adenopathy, free air or other significant finding. <Electronically signed by Sajan Banks > 07/09/21 [id number]
[2021-07-09] MEDS ORDERED: BACT800T5 PO (10:21)
[2021-07-09 11:01] VITALS: BP 116/63
== END 2021-07-09 11:08 | disposition home or self-care (01) ==
LOC: M ED 03:12
DX: L03.311 Cellulitis of abdominal wall (principal); N83.292 Other ovarian cyst, left side; F41.9 Anxiety disorder, unspecified; F31.89 Other bipolar disorder; Z87.891 Personal history of nicotine dependence; Z79.899 Other long term (current) drug therapy; Z88.0 Allergy status to penicillin
CPT/HCPCS: 36415; 74177; 80048; 80076; 81001; 82550; 82553; 83690; 84703; 85025; 93041; 96361; 96374; 99285; J1885; Q9967

== ENCOUNTER 2021-07-14 22:36 | Emergency (ER) | payer MEDICAID ==
[~2021-07-14 22:36] MED LIST changes: +BACT800T5 PO; +CEPH500C PO; +HYDR-3363 PO
[2021-07-14] MEDS ORDERED: NS 1,000 ML IV ONE (23:00)
[2021-07-15] MEDS ORDERED: ACETAMINOPHEN 325 MG TAB PO ONE (00:45)
[2021-07-15] MEDS ORDERED: ONDANSETRON 4 MG ORAL DISINTEGRATING TAB PO ONE (00:45)
[2021-07-15] MEDS ORDERED: KETOROLAC 30 MG/ML 1ML VIAL IV ONE (02:55)
[2021-07-15 03:07] LABS: BASO % 0.5 % (0.0-1.0); EOS # 0.1 10^3/uL (0.0-0.5); EOS % 1.3 % (0.0-3.0); HEMATOCRIT 34.1 % (36.0-47.0); HEMOGLOBIN 10.9 g/dl (12.0-15.5); LYMPH # 2.3 10^3/uL (1.5-5.0); LYMPH % 37.3 % (24.0-44.0); MEAN CORPUSCULAR HEMOGLOBIN 30.4 pg (27.0-33.0); MONO # 0.4 10^3/uL (0.0-0.8); MONO % 7.2 % (2.0-8.0); NEUTROPHILS # 3.3 10^3/uL (1.5-8.5); NEUTROPHILS % 53.2 % (36.0-66.0); PLATELET COUNT, AUTOMATED 242 10^3/uL (150-450); RED BLOOD COUNT 3.59 10^6/uL (4.00-5.40); WHITE BLOOD COUNT 6.1 10^3/uL (4.0-10.0)
[2021-07-15 03:31] LABS: ALBUMIN 2.8 GM/DL (3.2-5.2); ALT/SGPT 51 U/L (12-78); BILIRUBIN,DIRECT < 0.1 MG/DL (0.0-0.2); BILIRUBIN,TOTAL 0.1 MG/DL (0.2-1.0); BLOOD UREA NITROGEN 16 MG/DL (7-18); CALCIUM LEVEL 8.4 MG/DL (8.5-10.1); CARBON DIOXIDE LEVEL 27 MEQ/L (21-32); CHLORIDE LEVEL 107 MEQ/L (98-107); CREATININE FOR GFR 0.84 MG/DL (0.55-1.30); GLOMERULAR FILTRATION RATE > 60.0 (>58); GLUCOSE, FASTING 98 MG/DL (70-100); LIPASE 112 U/L (73-393); POTASSIUM SERUM 4.7 MEQ/L (3.5-5.1); SODIUM LEVEL 141 MEQ/L (136-145); TOTAL PROTEIN 6.4 GM/DL (6.4-8.2)
[2021-07-15] MEDS ORDERED: PERCOCET 5MG/325MG TAB PO ONE (04:45)
[2021-07-15] MEDS ORDERED: NAPR-837 PO (04:45)
[2021-07-15 05:53] VITALS: BP 108/67
--- NOTE | 2021-07-15 08:12 | ED PDOC ---
Post-Departure Follow-Up radiology report 07/09/21 faxed to Hyacinth Guerrero MD Jul 15, 2021 08:12
--- NOTE | 2021-07-15 10:20 | REP ---
INDICATION: R pelvic pain, hx of cysts. COMPARISON: CT 07/09/2021. TECHNIQUE: Transabdominal scanning performed. FINDINGS: Uterine dimensions are 8.9 x 4.8 x 5.7 cm. Endometrial echo is 4 mm in AP dimension and centrally placed. The bladder measures 8.6 x 5.0 x 8.0cm. The right ovary has dimensions of 2.4 x 1.7 x 3.1 cm. It's Doppler flow is normal with a resistive index of 0.54. The left ovary dimensions are 5.4 x 4.4 x 5.3 cm. It's Doppler flow was normal with resistive index of 0.65. A left ovarian cyst containing a thin septation measures 4.7 x 3.5 x 4.5 cm. No free fluid is seen in the cul-de-sac. IMPRESSION: Left ovarian cyst with maximum diameter 4.7 cm. No torsion or free fluid. Recommend follow-up ultrasound in 2 months. A preliminary report was provided by [facility] at the time of the exam. <Electronically signed by Erwin Caballero > 07/15/21 [id number]
== END 2021-07-15 05:58 | disposition home or self-care (01) ==
LOC: M ED 22:36
DX: N83.202 Unspecified ovarian cyst, left side (principal); I10 Essential (primary) hypertension; F31.9 Bipolar disorder, unspecified; K21.9 Gastro-esophageal reflux disease without esophagitis; Z79.899 Other long term (current) drug therapy; Z88.0 Allergy status to penicillin
CPT/HCPCS: 76856; 80048; 80076; 83605; 83690; 84702; 85025; 87040; 93976; 96361; 96374; 99284; J1885; Q0162

== ENCOUNTER → 2023-11-12 | Outpatient (REF) | payer MEDICAID, OTHER ==
[~2023-11-12] MED LIST changes: +DICY-61; +DICY-61 PO; -DICY10CA13; -DICY10CA13 PO; -KLON1TAB PO; +KLON1TAB13 PO; -LISI-898 PO; +LISI5TAB11 PO; +TIZA10TA PO; -TIZA4TAB4 PO
[2023-11-12 18:56] LABS: BASO # 0.1 10^3/uL (0.0-0.2); BASO % 0.5 % (0.0-1.0); EOS # 0.1 10^3/uL (0.0-0.5); EOS % 0.9 % (0.0-3.0); HEMATOCRIT 43.5 % (36.0-47.0); HEMOGLOBIN 14.4 g/dl (12.0-15.5); LYMPH # 4.6 10^3/uL (1.5-5.0); LYMPH % 47.7 % (24.0-44.0); MEAN CORPUSCULAR HEMOGLOBIN 31.7 pg (27.0-33.0); MEAN CORPUSCULAR HGB CONC 33.1 g/dl (32.0-36.5); MEAN CORPUSCULAR VOLUME 95.8 fl (80.0-96.0); MONO # 0.6 10^3/uL (0.0-0.8); MONO % 6.1 % (2.0-8.0); NEUTROPHILS # 4.3 10^3/uL (1.5-8.5); NEUTROPHILS % 44.6 % (36.0-66.0); PLATELET COUNT, AUTOMATED 178 10^3/uL (150-450); RED BLOOD COUNT 4.54 10^6/uL (4.00-5.40); WHITE BLOOD COUNT 9.7 10^3/uL (4.0-10.0)
[2023-11-12 19:22] LABS: ALBUMIN 3.6 G/DL (3.2-5.2); ALKALINE PHOSPHATASE 93 U/L (46-116); ALT/SGPT 129 U/L (7.0-40); AST/SGOT 62 U/L (<34); BILIRUBIN,TOTAL 0.4 MG/DL (0.3-1.2); BLOOD UREA NITROGEN 11 MG/DL (9-23); CALCIUM LEVEL 8.6 MG/DL (8.5-10.1); CARBON DIOXIDE LEVEL 29 MMOL/L (20-31); CHLORIDE LEVEL 109 MMOL/L (98-107); CREATININE FOR GFR 0.83 MG/DL (0.55-1.30); GLOMERULAR FILTRATION RATE > 60.0 (>58); GLUCOSE, FASTING 92 MG/DL (60-100); MAGNESIUM LEVEL 1.8 MG/DL (1.8-2.4); POTASSIUM SERUM 4.8 MMOL/L (3.5-5.1); SODIUM LEVEL 142 MMOL/L (136-145); TOTAL PROTEIN 6.9 G/DL (5.7-8.2)
[2023-11-12 19:25] LABS: TOTAL 25(OH) VITAMIN D 38.8 NG/ML (20.0-100.0)
[2023-11-12 19:26] LABS: THYROID STIMULATING HORMONE 2.518 uIU/ML (0.55-4.78)
[2023-11-12 19:46] LABS: HEMOGLOBIN A1c 5.2 % (4.0-6.0)
[2023-11-12 19:50] LABS: HIV 1&2 SCREEN NEGATIVE (NEGATIVE)
[2023-11-12 20:02] LABS: HEPATITIS C VIRUS ABY INDEX > 11.00 INDEX (<0.8)
== END ==
LOC: M LAB REF 17:35
PROVIDERS: ATTEND Physician Assistant
DX: Z11.9 Encounter for screening for infectious and parasitic diseases, unspecified (principal); E66.9 Obesity, unspecified; R53.83 Other fatigue; E55.9 Vitamin D deficiency, unspecified

== ENCOUNTER → 2023-11-18 | Outpatient (CLI) | payer MEDICAID, OTHER | LOC: M RAD 11:46 | PROVIDERS: ATTEND Physician Assistant | DX: I65.23 Occlusion and stenosis of bilateral carotid arteries (principal); R41.89 Other symptoms and signs involving cognitive functions and awareness ==

== ENCOUNTER → 2023-11-19 | Outpatient (REF) | payer OTHER | LOC: M LAB REF 16:28 | PROVIDERS: ATTEND Physician Assistant | DX: Z12.4 Encounter for screening for malignant neoplasm of cervix (principal) ==

== ENCOUNTER → 2023-12-09 | Outpatient (CLI) | payer OTHER ==
[2023-12-09 16:58] LABS: HEPATITIS B SURFACE ANTIBODY NEGATIVE (POSITIVE)
== END ==
LOC: M PLALAB 12:27
PROVIDERS: ATTEND Internal Medicine Infectious Disease
DX: B18.2 Chronic viral hepatitis C (principal)

== ENCOUNTER → 2024-01-18 | Outpatient (REF) | payer OTHER | LOC: M LAB REF 13:01 | PROVIDERS: ATTEND Physician Assistant | DX: Z12.4 Encounter for screening for malignant neoplasm of cervix (principal) ==

== ENCOUNTER → 2024-12-11 | Outpatient (CLI) | payer OTHER ==
[~2024-12-11] MED LIST changes: +ESOM1CAP20; -ESOM1CAP5; +FLUO-365 PO; -FLUO20CA22 PO; +ONDA-282 PO; -ONDA4TAB6 PO
[2024-12-11 15:55] LABS: BASO # 0.1 10^3/uL (0.0-0.2); BASO % 0.5 % (0.0-1.0); EOS # 0.1 10^3/uL (0.0-0.5); EOS % 0.7 % (0.0-3.0); HEMATOCRIT 41.2 % (36.0-47.0); HEMOGLOBIN 13.6 g/dl (12.0-15.5); LYMPH # 5.5 10^3/uL (1.5-5.0); LYMPH % 51.2 % (24.0-44.0); MEAN CORPUSCULAR VOLUME 90.9 fl (80.0-96.0); MONO # 0.6 10^3/uL (0.0-0.8); NEUTROPHILS # 4.5 10^3/uL (1.5-8.5); NEUTROPHILS % 41.3 % (36.0-66.0); PLATELET COUNT, AUTOMATED 197 10^3/uL (150-450); RED BLOOD COUNT 4.53 10^6/uL (4.00-5.40); WHITE BLOOD COUNT 10.8 10^3/uL (4.0-10.0)
[2024-12-11 16:22] LABS: ALBUMIN 3.6 G/DL (3.2-5.2); ALKALINE PHOSPHATASE 109 U/L (35-104); ALT/SGPT 25 U/L (7.0-40); AST/SGOT 12 U/L (<34); BILIRUBIN,TOTAL 0.3 MG/DL (0.3-1.2); BLOOD UREA NITROGEN 10 MG/DL (9-23); CALCIUM LEVEL 9.1 MG/DL (8.5-10.1); CARBON DIOXIDE LEVEL 25 MMOL/L (20-31); CHLORIDE LEVEL 108 MMOL/L (98-107); CREATININE FOR GFR 0.72 MG/DL (0.55-1.30); GLOMERULAR FILTRATION RATE > 60.0 (>58); GLUCOSE, FASTING 99 MG/DL (60-100); POTASSIUM SERUM 3.8 MMOL/L (3.5-5.1); SODIUM LEVEL 141 MMOL/L (136-145)
[2024-12-14 14:02] LABS: HIV-1 RNA PCR QUANT 2 NOT DETECTED copies/mL (NOT DETECTED); HIV-1 RNA PCR QUANT 3 NOT DETECTED (NOT DETECTED)
[2024-12-17 01:37] LABS: HCV RNA QUANTITATION <15 NOT DETECTED IU/mL (NOT DETECTED); HCV RNA log10 <1.18 NOT DETECTED Log IU/mL (NOT DETECTED)
== END ==
LOC: M PLALAB 14:06
PROVIDERS: ATTEND Internal Medicine Infectious Disease
DX: B18.2 Chronic viral hepatitis C (principal)

== ENCOUNTER → 2025-03-15 | Outpatient (REF) | payer OTHER ==
[~2025-03-15] MED LIST changes: +LAMO-18; +LAMO-18 PO; -LAMO25TA4; -LAMO25TA4 PO
[2025-03-15 14:22] LABS: CHOLESTEROL LEVEL 184.0 MG/DL (<200); CHOLESTEROL RISK RATIO 4.0 (<5); LDL CHOLESTEROL 101.5 MG/DL (<100); NON-HDL-C 138.1 MG/DL; TRIGLYCERIDES LEVEL 183.0 MG/DL (<150)
[2025-03-15 14:25] LABS: TOTAL 25(OH) VITAMIN D 38.9 NG/ML (20.0-100.0)
[2025-03-15 14:38] LABS: ESTIMATED AVERAGE GLUCOSE 114.0 MG/DL (60-110)
== END ==
LOC: M LAB REF 13:32
PROVIDERS: ATTEND Physician Assistant
DX: E66.9 Obesity, unspecified (principal); E55.9 Vitamin D deficiency, unspecified; Z79.891 Long term (current) use of opiate analgesic

== ENCOUNTER → 2025-03-16 | Outpatient (CLI) | payer OTHER | LOC: M PLAIMG 09:15 | PROVIDERS: ATTEND Physician Assistant | DX: R51.9 Headache, unspecified (principal); Z82.49 Family history of ischemic heart disease and other diseases of the circulatory system ==